=== PATIENT | male | born 1980 | race Caucasian/White ===

== ENCOUNTER → 2021-10-09 | Outpatient (CLI) | payer OTHER ==
--- NOTE | 2021-10-09 14:07 | RAD ---
EXAM: Bilateral diagnostic mammogram; bilateral breast sonogram. HISTORY: 41-year-old female presents for evaluation of a palpable lump within the lateral left breast . The patient reports that this has resolved and that there is a similar palpable abnormality within the right breast which has resolved. TECHNIQUE: Full-field digital craniocaudal and mediolateral oblique views of both breasts are obtaine d for evaluation. Computer aided detection was applied. Sonographic imaging of both breasts targeted to sites of prior palpable abnormality was also performed. COMPARISON: None. BREAST PARENCHYMAL DENSITY: Level A - Mostly fat. FINDINGS: There is mild slight asymmetric density within the left greater than right subareolar aspec ts of both breasts. No suspicious calcification or architectural distortion is seen. Sonographic imaging of both breasts demonstrates no suspicious finding at the site of reported palpab le concern. IMPRESSION: 1. Slight asymmetric density within the subareolar aspects of the left greater than right breast. Thi s can be seen with minimal gynecomastia. 2. No suspicious mammographic or sonographic finding. 3. BI-RADS Category 2: Benign finding(s). Continued clinical follow-up palpable abnormalities is cathy mmended. Repeat imaging can be performed if there is continued concern or change in physical exam fin dings. If your mammogram demonstrates that you have dense breast tissue, which could hide abnormalities, and if you have other risk factors for breast cancer that have been identified, you might benefit from s upplemental screening tests that may be suggested by your ordering physician. Dense breast tissue, i n and of itself, is a relatively common condition. This information is not provided to cause undue c oncern, but rather to raise your awareness and to promote discussion with your physician regarding th e presence of other risk factors, in addition to dense breast tissue. A report of your mammography re sults will be sent to you and your physician. You should contact your physician if you have any ques tions or concerns regarding this report. Mammography is a sensitive method for finding small breast cancers, but it does not detect them all a nd is not a substitute for careful clinical examination. A negative mammogram does not negate a clin ically suspicious finding and should not result in delay in biopsying a clinically suspicious abnorma lity. PQRS compliance statement - Patient information was entered into a reminder system with a target due date for the next mammogram. "Our facility is accredited by the [employer] Mammography [employer]." Electronically signed by: Shavon Davis MD (10/09/2021 2:05 PM) [id number]
== END ==
LOC: MAMMO 12:54
PROVIDERS: ATTEND Pediatrics
DX: R92.8 Other abnormal and inconclusive findings on diagnostic imaging of breast (principal); N63.10 Unspecified lump in the right breast, unspecified quadrant; N63.20 Unspecified lump in the left breast, unspecified quadrant; N64.4 Mastodynia
CPT/HCPCS: 77066; 76642-50